=== PATIENT | female | born 1965 | race Caucasian/White ===

== ENCOUNTER → 2017-01-07 | Outpatient (CLI) | payer OTHER ==
--- NOTE | 2017-01-08 09:36 | MAM ---
EXAM DESCRIPTION: 3D Screening BILATERAL CLINICAL HISTORY: 51 yearsFemaleSCREENING COMPARISON: Baseline study at this facility. No prior reports available. TECHNIQUE: Bilateral digital screening. CC and MLO projection full-field, 2-D images. Bilateral Donna implant displacement images, CC and MLO full-field projections, 3-D tomosynthesis. FINDINGS: The breast parenchymal density pattern is: Heterogeneously dense breast tissue, which may obscure small masses. No skin thickening or nipple retraction bilaterally. Spinal solitary microcalcifications bilaterally. No focal, stellate mass or density no focal asymmetry, and no suspicious microcalcifications bilaterally. IMPRESSION: BI-RADS CATEGORY: 2 - BENIGN FINDINGS. FOLLOW UP: Routine digital bilateral screening, one year interval from December 2016. Written communication explaining the findings and follow-up, will be mailed to the patient and referring health care provider. According to the [employer], yearly mammograms are recommended starting at age 40 and continuing as long as a woman is in good health. Any breast change noted on a breast self-exam should be reported promptly to the patient's healthcare provider. Breast MRI is recommended for women with an approximately 20-25% or greater lifetime risk of breast cancer, including women with a strong family history of breast or ovarian cancer and women who have been treated for Hodgkin's disease. A negative mammographic report should not delay tissue diagnosis in patients with significant clinical history or physical findings. Extremely dense breast tissue limits the sensitivity of digital mammography. Electronically signed by: Zaheer Mcbride MD 01/08/2017 9:34 AM CDT Workstation: [id number]
== END ==
LOC: MAMMO 16:00
PROVIDERS: ATTEND Family Medicine
DX: Z12.31 Encounter for screening mammogram for malignant neoplasm of breast (principal)

== ENCOUNTER 2017-12-06 06:52 | Emergency (ER) | payer OTHER ==
[2017-12-06 07:05] VITALS: TEMP 97.4
[2017-12-06] MEDS ORDERED: fentaNYL CITRATE INJ 50 MCG/ML AMP IV ONE (07:13)
[2017-12-06] MEDS ORDERED: ONDANSETRON INJ 4 MG/2 ML VIAL IV ONE (07:13)
[2017-12-06] MEDS ORDERED: LACTATED RINGERS 1,000 ML IVS ONE (07:13)
--- NOTE | 2017-12-06 07:13 | ED.PDOC ---
History of Present Illness - General Chief Complaint: Abdominal Pain Stated Complaint: abd pain, nausea Time Seen by Provider: 12/06/17 07:12 Source: patient - History of Present Illness Initial Comments: Amanda Jenkins 52 y/o female came to ER with watery diarrhea and abdominal cramps ,feelinf of nausea since yesterday unable to get anything down since aggravates abdominal cramps.No fever,chills ,no recent antibiotics ,no foreign travel,no ill contact. Timing/Duration: 24 hours Severity: moderate Improving Factors: nothing Worsening Factors: eating Associated Symptoms: other - see hpi Allergies/Adverse Reactions: Allergies Aluminum Chlorohydrate [From Feet Athletes Foot and Antifungal S] Allergy ( Verified 09/23/15 15:58) Morphine Allergy (Verified 09/23/15 15:58) Undecylenic Acid [From Feet Athletes Foot and Antifungal S] Allergy (Verified 15:58) Home Medications: Ambulatory Orders Chlorthalidone 25 mg PO DAILY 04/05/14 Dicyclomine HCl [Bentyl] 10 mg PO BID 04/05/14 Gabapentin 600 mg PO TID 04/05/14 Potassium Chloride [Potassium Chloride ER] 20 meq PO BID 04/05/14 Clotrimazole/Betamethasone Cre [Lotrisone Cream] 1 applic EX TID #1 tube Promethazine W/Codeine Syr [Phenergan With Codeine Syrup] 10 ml PO TID PRN #60 ml 12/06/17 Review of Systems - Review of Systems Constitutional: States: no symptoms reported EENTM: States: no symptoms reported Respiratory: States: no symptoms reported Cardiology: States: no symptoms reported Gastrointestinal/Abdominal: States: see HPI Genitourinary: States: no symptoms reported Musculoskeletal: States: no symptoms reported Skin: States: no symptoms reported Neurological: States: no symptoms reported All other Systems: Reviewed and Negative, No Change from Baseline Past Medical History (General) - Patient Medical History Hx Asthma: No Hx Congestive Heart Failure: No Hx Diabetes: No Hx Renal Disease: Yes - Poor Kidney profusion Hx Cancer: No Surgical History: appendectomy, other - uterine ablation - Vaccination History Hx Tetanus, Diphtheria Vaccination: Yes Hx Influenza Vaccination: Yes Hx Pneumococcal Vaccination: No - Social History Hx Tobacco Use: No Hx Alcohol Use: Yes - occ. Hx Substance Use: No Feels Threatened In Home Enviroment: No Feels Threatened In a Relationship: No Hx Physical Abuse: No Hx Emotional Abuse: No Hx Suspected Abuse: No - Female History Patient is a Female of Child Bearing Age (10 -59 yrs old): No Family Medical History - Family History Mother Family History: Unknown Hx Family Hypertension: Yes - mom Hx Family Cancer: Yes - dad-urinary bladder cancer Physical Exam - Physical Exam General Appearance: Alert, Anxious, No apparent distress Eye Exam: bilateral normal Ears, Nose, Throat: hearing grossly normal, normal ENT inspection Neck: non-tender, supple Respiratory: lungs clear, normal breath sounds Cardiovascular/Chest: normal peripheral pulses, regular rate, rhythm, no murmur Peripheral Pulses: radial,right: 2+, radial,left: 2+ Gastrointestinal/Abdominal: normal bowel sounds, non tender, soft Back Exam: no CVA tenderness, no vertebral tenderness Extremity: no pedal edema, no calf tenderness Neurologic: alert, oriented x 3 Skin Exam: normal color, warm/dry Progress - Progress Progress: 12/06/17 07:21 Vital Signs - 24 hr 12/06/17 07:01 Temperature 97.4 F L Pulse Rate [ 87 left] Respiratory 18 Rate Blood Pressure 127/82 [Left] O2 Sat by Pulse 96 Oximetry - Results/Orders Results/Orders: 12/06/17 07:13 Lactated Ringers [Lr] 1,000 ml IVS ONCE 12/06/17 07:55 BOLUS Sodium Chloride 0.9% 500Ml [NS 500ml] 500 ml IVS ONCE Laboratory Results - last 24 hr 12/06/17 12/06/17 07:23 07:23 WBC 6.1 RBC 5.36 Hgb 16.4 H Hct 47.2 H MCV 88.1 MCH 30.5 MCHC 34.7 RDW 12.6 Plt Count 210 MPV 8.0 Absolute Neuts (auto) 4.60 Absolute Lymphs (auto) 0.80 L Absolute Monos (auto) 0.50 Absolute Eos (auto) 0.10 Absolute Basos (auto) 0.00 Neutrophils % 76.0 Lymphocytes % 13.0 L Monocytes % 8.8 Eosinophils % 2.0 Basophils % 0.2 Sodium 140 Potassium 3.4 L Chloride 105 Carbon Dioxide 24 Anion Gap 14.4 BUN 19 H Creatinine 0.94 BUN/Creatinine Ratio 20.2 H Random Glucose 89 Serum Osmolality 281.1 Calcium 9.0 Lipase 26 Departure - Departure Clinical Impression: Abdominal cramping in left lower quadrant Diarrhea Qualifiers: Diarrhea type: unspecified type Qualified Code(s): R19.7 - Diarrhea, unspecified Time of Disposition: 08:18 Disposition: Discharge to Home or Self Care Condition: Fair Departure Forms: ED Discharge - Pt. Copy, Patient Portal Self Enrollment Instructions: Gastroenteritis Diet, DI for Viral Gastroenteritis -- Adult Diet: other - AVOID GREASY SPICY FOODS UNTIL BETTER Referrals: Danilo Magana MD [Primary Care Provider] - 1-2 Weeks Prescriptions: Promethazine W/Codeine Syr [Phenergan With Codeine Syrup] 10 ml PO TID PRN #60 ml PRN Reason: Abdominal Cramping Home Medications: Ambulatory Orders Chlorthalidone 25 mg PO DAILY 04/05/14 Dicyclomine HCl [Bentyl] 10 mg PO BID 04/05/14 Gabapentin 600 mg PO TID 04/05/14 Potassium Chloride [Potassium Chloride ER] 20 meq PO BID 04/05/14 Clotrimazole/Betamethasone Cre [Lotrisone Cream] 1 applic EX TID #1 tube Promethazine W/Codeine Syr [Phenergan With Codeine Syrup] 10 ml PO TID PRN #60 ml 12/06/17 Additional Instructions: May take Imodium capsule (over the counter as directed package instruction)
[2017-12-06] MEDS ORDERED: HYOSCYAMINE SULFATE 0.5 MG/ML VIAL IV ONE (07:15)
[2017-12-06] MEDS ORDERED: SODIUM CHLORIDE 0.9% 500ML 500 ML IVS ONE (07:55)
[2017-12-06 07:56] VITALS: O2SAT 98
[2017-12-06 08:42] VITALS: BP 101/62
== END 2017-12-06 08:42 | disposition home or self-care (01) ==
LOC: ER 06:52
DX: R10.32 Left lower quadrant pain (principal); R19.7 Diarrhea, unspecified; R11.0 Nausea; Z90.49 Acquired absence of other specified parts of digestive tract; Z88.5 Allergy status to narcotic agent; Z88.8 Allergy status to other drugs, medicaments and biological substances

== ENCOUNTER → 2017-12-15 | Outpatient (CLI) | payer OTHER | LOC: YCFC.O 13:57 | PROVIDERS: ATTEND Nurse Practitioner Family | DX: R19.7 Diarrhea, unspecified (principal) ==

== ENCOUNTER → 2018-03-09 | Outpatient (CLI) | payer OTHER ==
--- NOTE | 2018-03-10 09:01 | RAD ---
EXAM DESCRIPTION: Toes,Right CLINICAL HISTORY: 52 years Female, CONTUSION OF TOE-RIGHT COMPARISON: None. FINDINGS: AP and lateral views of the right toes. No fracture. No dislocation. Normal bony mineralization. Mild spurring at the first metatarsal phalangeal joint. Degenerative changes at the DIP joint of the fourth toe. Mild irregularity of the tuft of the distal phalanx of the fifth toe may be old healed fracture. IMPRESSION: Negative for acute fracture or dislocation. Electronically signed by: Johnson Vincent MD 03/10/2018 8:59 AM CDT
== END ==
LOC: YCFC.O 16:37
DX: S90.119A Contusion of unspecified great toe without damage to nail, initial encounter (principal)

== ENCOUNTER → 2019-01-28 | Outpatient (CLI) | payer OTHER ==
[~2019-01-28] MED LIST: ONDANSETRON INJ 4 MG/2 ML VIAL IV ONE; SODIUM CHLORIDE 0.9% 1000ML 1,000 ML IVS ONE
[2019-01-28 10:20] VITALS: BP 131/79; TEMP 99; O2SAT 99
== END ==
LOC: LAB.O 09:24
PROVIDERS: ATTEND Nurse Practitioner
DX: E86.0 Dehydration (principal)
CPT/HCPCS: 36415; 80048; 85025; 96360; 96375; J2405; J7030

== ENCOUNTER → 2019-11-10 | Outpatient (CLI) | payer BC ==
--- NOTE | 2019-11-10 20:06 | MAM ---
EXAM DESCRIPTION: 3D Screening BILATERAL : Digital Mammography. CLINICAL HISTORY: 54 years Female ANNUAL SCREENING . No complaints. No personal history of breast cancer. Remote family history of breast and ovarian cancer. Menarche age 16. Childbirth age 23. Uterine ablation unknown age. No HRT. Bilateral breast augmentation. Lifetime risk of developing breast cancer (Tyrer-Cuzick model)(%): 7.1. COMPARISON: Bilateral screening digital breast tomosynthesis with Donna implant displacement technique. December 2016. TECHNIQUE: Bilateral CC and MLO projection full-field images, with Donna Implant Displacement digital tomosynthesis mammographic technique. Bilateral 2-D digital full-field images, MLO and CC projections, non-displaced. Bilateral digital 2-D full-field MLO images. Implant displaced. CAD available for 2-D images. FINDINGS: The breast parenchymal density pattern is: Heterogeneously dense breast tissue, which may obscure small masses. No skin thickening or nipple retraction. Solitary microcalcifications. Bilateral saline implants retroglandular. Capsules appear intact where seen. RI values are tissues have slightly decreased bilaterally. No new focal, stellate mass or density, focal asymmetry , and no suspicious microcalcifications bilaterally. Stable mammograms compared to prior study. IMPRESSION: Benign exam. BIRAD CATEGORY: 2 BENIGN FINDINGS. RECOMMENDATIONS: FOLLOW UP: Routine digital bilateral mammographic screening, one year interval from October 2019. Written communication explaining the IMPRESSION and follow-up, will be mailed to the patient and referring health care provider. According to the [employer], yearly mammograms are recommended starting at age 40 and continuing as long as a woman is in good health. Any breast change noted on a breast self-exam should be reported promptly to the patient's healthcare provider. Breast MRI is recommended for women with an approximately 20-25% or greater lifetime risk of breast cancer, including women with a strong family history of breast or ovarian cancer and women who have been treated for Hodgkin's disease. A negative mammographic report should not delay tissue diagnosis in patients with significant clinical history or physical findings. Extremely dense breast tissue limits the sensitivity of digital mammography. Electronically signed by: Zaheer Mcbride MD 11/10/2019 8:04 PM CDT
== END ==
LOC: MAMMO 08:00
PROVIDERS: ATTEND Nurse Practitioner
DX: Z12.31 Encounter for screening mammogram for malignant neoplasm of breast (principal)

== ENCOUNTER → 2020-05-04 | Outpatient (CLI) | payer SELFPAY | LOC: LAB.O 07:11 | PROVIDERS: ATTEND Nurse Practitioner Family | DX: E34.9 Endocrine disorder, unspecified (principal) ==